=== PATIENT | female | born 1985 | race Caucasian/White ===

== ENCOUNTER 2018-10-24 08:13 | Emergency (ER) | payer BC ==
[2018-10-24 08:34] VITALS: BP 122/82
[2018-10-24 08:53] LABS: Influenza A Molecular NEGATIVE (Negative); Influenza B Molecular NEGATIVE (Negative)
--- NOTE | 2018-10-24 09:45 | UC ---
Respiratory Complaint HPI - HPI Summary HPI Summary: 33-year-old woman comes in with a chief complaint of upper respiratory tract infection symptoms and chest congestion. Symptoms started about a week ago with upper respiratory tract infection symptoms with a runny nose cough. Yesterday she felt a lot worse with fevers body aches and chest congestion. She took [id number] medicines which did help the symptoms. Now she is feeling chest congestion but no more bodyaches. A relative of hers has influenza and therefore her primary care doctor started her on Tamiflu yesterday but she had no influenza testing at that time. Patient's most concerned about the chest congestion. No shortness of breath he does not have a history of asthma she is not a smoker. Patient also reports a 4 day history of right lower quadrant abdominal pain. Is worse with stretching. She has been able to eat and drink normal urination normal bowels. She took a home test couple of weeks ago and that was negative. She is on a control pill but she did stop taking it briefly and then started again. No complaint of any abnormal vaginal discharge. No prior abdominal surgeries. The pain is mild. - History of Current Complaint Chief Complaint: UCRespiratory Stated Complaint: FEVER,NAUSEA,GRAFF,CHEST CONGESTION Time Seen by Provider: 10/24/18 09:24 Hx Last Menstrual Period: Irregular with Control; "maybe September" Pain Intensity: 0 - Allergies/Home Medications Allergies/Adverse Reactions: Allergies Allergy/AdvReac Type Severity Reaction Status Date / Time Penicillins Allergy Rash Verified 10/24/18 08:35 Home Medications: Home Medications Norethindrone [Norlyda] 0.35 mg PO DAILY 10/24/18 [History Confirmed 10/24/18] Oseltamivir CAP* [Tamiflu CAP*] 75 mg PO DAILY 10/24/18 [History Confirmed 10/24] PMH/Surg Hx/FS Hx/Imm Hx Previously Healthy: Yes - Surgical History Surgical History: Yes Surgery Procedure, Year, and Place: , 2016, [place]; T&A. Leap procedure 2003 - Family History Known Family History: Positive: Hypertension - Social History Alcohol Use: Occasionally Substance Use Type: None Smoking Status (MU): Never Smoked Tobacco Review of Systems All Other Systems Reviewed And Are Negative: Yes Constitutional: Positive: Fever, Chills Skin: Positive: Negative Eyes: Positive: Negative ENT: Positive: Sore Throat, Nasal Discharge, Sinus Congestion Respiratory: Positive: Cough Cardiovascular: Positive: Negative Gastrointestinal: Positive: Abdominal Pain Genitourinary: Positive: Negative. Negative: Dysuria, Vaginal/Penile Discharge Motor: Positive: Negative Neurovascular: Positive: Negative Musculoskeletal: Positive: Myalgia Neurological: Positive: Negative Psychological: Positive: Negative Is Patient Immunocompromised?: No Physical Exam Triage Information Reviewed: Yes Appearance: No Pain Distress, Well-Nourished, Ill-Appearing - MILD Vital Signs: Initial Vital Signs Temp 98.5 F 10/24/18 08:30 Pulse 78 10/24/18 08:30 Resp 16 10/24/18 08:30 BP 122/82 10/24/18 08:30 Pulse Ox 100 10/24/18 08:30 Vital Signs Reviewed: Yes Eye Exam: Normal Eyes: Positive: Conjunctiva Clear ENT: Positive: Pharyngeal erythema, Nasal congestion, Nasal drainage, TMs normal Neck exam: Normal Neck: Positive: Supple, Nontender Respiratory: Positive: Lungs clear, Normal breath sounds, No respiratory distress Cardiovascular: Positive: RRR Abdomen Description: Positive: Soft, Other: - Patient is mildly tender to palpation in the right lower quadrant primarily in the proximal inguinal area. No rebound. Negative heel strike negative obturator sign. No masses palpated. Bowel Sounds: Positive: Present Musculoskeletal Exam: Normal Musculoskeletal: Positive: Strength Intact, ROM Intact Neurological Exam: Normal Neurological: Positive: Alert, Muscle Tone Normal Psychological Exam: Normal Psychological: Positive: Age Appropriate Behavior Skin Exam: Normal UC Diagnostic Evaluation - Laboratory O2 Sat by Pulse Oximetry: 100 Respiratory Course/Dx - Course Course Of Treatment: We discussed her symptoms. Today the patient does not have any body aches and her influenza was negative therefore the chance that the overall infection is influenza is very small. Therefore she will stop taking the Tamiflu. We discussed viral versus bacterial infections and the role of antibiotics. Patient prefers to be on antibiotics now for the chest congestion. On evaluation of her abdominal pain the pain primarily is in the proximal inguinal area. We discussed the potential diagnosis of appendicitis inguinal hernia ectopic or ovarian cause of the pain. We discussed getting a urine test which the patient declined at this time. Over the overall the plan with her abdominal pain is if she gets any worse she'll go to the emergency department for further evaluation. - Differential Dx/Diagnosis Provider Diagnosis: Bronchitis, Right lower quadrant abdominal pain Discharge - Sign-Out/Discharge Documenting (check all that apply): Patient Departure All imaging exams completed and their final reports reviewed: No Studies - Discharge Plan Condition: Stable Disposition: HOME Prescriptions: Azithromyxin PINA (NF) [Z-Pina (Zithromax) 250 mg tabs #6] 2 tab PO .TODAY, THEN 1 DAILY #6 tab Patient Education Materials: Acute Bronchitis (ED), Acute Abdominal Pain (ED) Referrals: Nam Jean Baptiste DO [Primary Care Provider] - Additional Instructions: FOLLOW UP WITH YOUR DOCTOR IF NOT COMPLETELY IMPROVED. GO TO THE EMERGENCY DEPARTMENT FOR ANY WORSENING OF YOUR CONDITION; ABDOMINAL PAIN, FEVER, YOU FEEL ILL OR QUESTIONS OR CONCERNS. - Billing Disposition and Condition Condition: STABLE Disposition: Home
== END 2018-10-24 09:49 | disposition home or self-care (01) ==
LOC: UCCORT 08:13
DX: J40 Bronchitis, not specified as acute or chronic (principal); R10.31 Right lower quadrant pain; M79.10 Myalgia, unspecified site; R09.89 Other specified symptoms and signs involving the circulatory and respiratory systems; Z88.0 Allergy status to penicillin
CPT/HCPCS: 99212; G0463

== ENCOUNTER 2019-03-13 19:31 | Emergency (ER) | payer BC ==
[2019-03-13 19:48] VITALS: BP 106/69
--- NOTE | 2019-03-13 20:08 | UC ---
UC General HPI - HPI Summary HPI Summary: PT IS C/O WORSENING SINUS PAIN, PRESSURE AND CONGESTION FOR OVER A WEEK. SHE HAS HAD PURULENT DRAINAGE FROM THE L NOSTRIL. NO FEVER. HX SINUSITIS AND THIS FEELS THE SAME. SHE TRIED TO TX WITH ALLERGY MEDIATION WITH NO RELIEF. THE PAIN GOES INTO HER TEETH. - History of Current Complaint Chief Complaint: UCGeneralIllness Stated Complaint: SINUS Time Seen by Provider: 03/13/19 19:58 Hx Obtained From: Patient Hx Last Menstrual Period: 03/08/19 Onset/Duration: Gradual Onset Timing: Constant Pain Intensity: 5 - Allergy/Home Medications Allergies/Adverse Reactions: Allergies Allergy/AdvReac Type Severity Reaction Status Date / Time Penicillins Allergy Rash Verified 03/13/19 19:43 Home Medications: Home Medications Pnv No.95/Ferrous Fum/Folic AC [ Caplet] 1 each PO DAILY 03/13/19 [ History Confirmed 03/13/19] Pseudoephedrine TAB* [Sudafed TAB*] 30 mg PO Q6H PRN 03/13/19 [History Confirmed 03/13/19] PMH/Surg Hx/FS Hx/Imm Hx - Additional Past Medical History Additional PMH: SINUSITIS - Surgical History Surgical History: Yes Surgery Procedure, Year, and Place: , 2017, [place]; T&A. Leap procedure 2003 - Family History Known Family History: Positive: Hypertension - Social History Lives: With Family Alcohol Use: Occasionally Substance Use Type: None Smoking Status (MU): Never Smoked Tobacco Review of Systems All Other Systems Reviewed And Are Negative: Yes Constitutional: Negative: Fever ENT: Positive: Nasal Discharge, Sinus Congestion, Sinus Pain/Tenderness Physical Exam Triage Information Reviewed: Yes Appearance: Well-Appearing Vital Signs: Initial Vital Signs Temp 98.7 F 03/13/19 19:44 Pulse 62 03/13/19 19:44 Resp 14 03/13/19 19:44 BP 106/69 03/13/19 19:44 Pulse Ox 99 03/13/19 19:44 Vital Signs Reviewed: Yes Eyes: Positive: Conjunctiva Clear ENT: Positive: Pharynx normal, Nasal congestion, TMs normal, Sinus tenderness - FRONTAL AND MAXILLA. Negative: Nasal drainage Neck: Positive: Supple, Nontender, No Lymphadenopathy Respiratory: Positive: Lungs clear Cardiovascular: Positive: RRR Musculoskeletal: Positive: ROM Intact Neurological: Positive: Alert Psychological: Positive: Age Appropriate Behavior Skin Exam: Normal Course/Dx - Course Course Of Treatment: PCN ALLERGY IS HIVES. SHE HAS TAKEN KEFLEX THUS WILL TX WITH CEFDINIR FOR SINUSITIS. I WANT TO AVOID DOXYCYCLINE DUE TO PHOTOSENSITIVITY. - Diagnoses Provider Diagnosis: Sinusitis Discharge - Sign-Out/Discharge Documenting (check all that apply): Patient Departure All imaging exams completed and their final reports reviewed: No Studies - Discharge Plan Condition: Stable Disposition: HOME Prescriptions: Cefdinir [Cefdinir 300 MG CAP] 300 mg PO BID 10 Days #20 capsule Patient Education Materials: Sinusitis (ED) Referrals: Nam Jean Baptiste DO [Primary Care Provider] - Additional Instructions: FOLLOW UP IF NOT BETTER IN 7 DAYS OR SOONER IF WORSE. - Billing Disposition and Condition Condition: STABLE Disposition: Home
== END 2019-03-13 20:13 | disposition home or self-care (01) ==
LOC: UCCORT 19:31
DX: J32.9 Chronic sinusitis, unspecified (principal)
CPT/HCPCS: 99212; G0463

== ENCOUNTER 2019-09-16 15:18 | Emergency (ER) | payer BC ==
[2019-09-16 16:10] VITALS: BP 130/86
--- NOTE | 2019-09-16 16:30 | UC ---
Throat Pain/Nasal Gopal HPI - HPI Summary HPI Summary: 34-year-old female who is 19 weeks presents with complaints of headache for the past 9 days. States she contacted her LEARNING SUPPORT ASSISTANT who suggested that she come to urgent care for evaluation of a possible sinus infection. Describes headache as an intermittent pressure and ache located behind her eyes. Has taken acetaminophen with some relief in the symptoms. Patient notes moderate nasal congestion. Denies fever, chills, ear pain, sore throat, cough, visual disturbances, dizziness, chest pain, shortness of breath, nausea, or vomiting. - History of Current Complaint Chief Complaint: UCRespiratory Stated Complaint: SINUSES Time Seen by Provider: 09/16/19 16:24 Hx Obtained From: Patient Hx Last Menstrual Period: 03/08/19 ?: Yes Pain Intensity: 0 - Allergies/Home Medications Allergies/Adverse Reactions: Allergies Allergy/AdvReac Type Severity Reaction Status Date / Time Penicillins Allergy Rash Verified 09/16/19 16:10 Home Medications: Home Medications Acetaminophen [Acetaminophen Extra Strength] 500 mg PO ONCE PRN 09/16/19 [ History Confirmed 09/16/19] PMH/Surg Hx/FS Hx/Imm Hx Previously Healthy: Yes - Denies significant PMH - Surgical History Surgical History: Yes Surgery Procedure, Year, and Place: , 2016, [place]; T&A. Leap procedure 2003 - Family History Known Family History: Positive: Hypertension - Social History Occupation: Employed Full-time Lives: With Family Alcohol Use: Occasionally Substance Use Type: None Smoking Status (MU): Never Smoked Tobacco Review of Systems All Other Systems Reviewed And Are Negative: Yes Constitutional: Negative: Fever, Chills Skin: Negative: Rash Eyes: Negative: Blurred Vision, Diplopia, Drainage, Eye Redness, Photophobia ENT: Positive: Nasal Discharge, Sinus Congestion. Negative: Sore Throat, Ear Ache Respiratory: Negative: Shortness Of Breath, Cough Cardiovascular: Negative: Palpitations, Chest Pain Gastrointestinal: Negative: Abdominal Pain, Vomiting, Nausea Genitourinary: Positive: Negative Musculoskeletal: Positive: Negative Neurological: Positive: Headache. Negative: Weakness, Paresthesia, Numbness Physical Exam - Summary Physical Exam Summary: GENERAL APPEARANCE: Well developed, well nourished, alert and cooperative, and appears to be in no acute distress. EYES: Conjunctiva clear. No drainage. PERRL, EOM intact. Vision is grossly intact. EARS: External auditory canals and tympanic membranes clear, hearing grossly intact. NOSE: Moderate nasal congestion. No nasal discharge. THROAT: Pharynx normal. No tonsilar inflammation, swelling, exudate, or lesions. Uvula midline. NECK: Neck supple, non-tender without lymphadenopathy. CARDIAC: Normal S1 and S2. No S3, S4 or murmurs. Rhythm is regular. There is no peripheral edema, cyanosis or pallor. Extremities are warm and well perfused. Capillary refill is less than 2 seconds. Peripheral pulses intact. LUNGS: Clear to auscultation without rales, rhonchi, wheezing or diminished breath sounds. ABDOMEN: Positive bowel sounds. Soft, nondistended, nontender. No guarding or rebound. No masses or hepatosplenomegally. Fundus consistent with gestational age. MUSKULOSKELETAL: ROM intact to all extremities. No joint erythema or tenderness. Normal muscular development. Normal gait. NEUROLOGICAL: CN II-XII intact. Strength and sensation symmetric and intact throughout. Cerebellar testing normal. SKIN: Skin normal color, texture and turgor with no lesions or eruptions. Triage Information Reviewed: Yes Vital Signs: Initial Vital Signs Temp 99.9 F 09/16/19 16:05 Pulse 87 09/16/19 16:05 Resp 18 09/16/19 16:05 BP 130/86 09/16/19 16:05 Pulse Ox 99 09/16/19 16:05 Vital Signs Reviewed: Yes Throat Pain/Nasal Course/Dx - Course Course Of Treatment: 34-year-old female who is 19 weeks presents with complaints of headache for the past 9 days. States she contacted her LEARNING SUPPORT ASSISTANT who suggested that she come to urgent care for evaluation of a possible sinus infection. Describes headache as an intermittent pressure and ache located behind her eyes. Has taken acetaminophen with some relief in the symptoms. Patient notes moderate nasal congestion. Denies fever, chills, ear pain, sore throat, cough, visual disturbances, dizziness, chest pain, shortness of breath, nausea, or vomiting. Afebrile. Mildly hypertensive at 130/86 otherwise vital signs stable. Patient was neurologically intact with moderate nasal congestion, normal TMs, normal pharynx, clear bilateral breath sounds, and otherwise unremarkable exam. [id number] urinalysis showed some trace leukocyte esterase but no protein. A urine culture is pending. Repeat blood pressure had normalized. I discussed with the patient that with the normal blood pressure and absence of protein in the urine that I had a very low suspicion for preeclampsia however could not fully rule this out. We will plan to treat her for an acute sinus infection with a course of azithromycin as well as symptomatic treatment. She is to follow-up with her primary care or LEARNING SUPPORT ASSISTANT in 3 -5 days if symptoms are not improving. Anticipatory guidance and warning symptoms requiring immediate evaluation in the emergency room were reviewed with the patient. Verbalizes understanding and agrees with plan of care. - Differential Dx/Diagnosis Differential Diagnosis/HQI/PQRI: Sinusitis, URI, Other - Preeclampsia Provider Diagnosis: Sinusitis Discharge ED - Sign-Out/Discharge Documenting (check all that apply): Patient Departure All imaging exams completed and their final reports reviewed: No Studies - Discharge Plan Condition: Stable Disposition: HOME Prescriptions: Azithromyxin PINA (NF) [Z-Pina (Zithromax) 250 mg tabs #6] 2 tab PO .TODAY, THEN 1 DAILY #6 tab Fluticasone NASAL SPRAY 50MCG* [Flonase NASAL SPRAY 50MCG*] 2 spray BOTH NARES DAILY #1 btl Patient Education Materials: Sinusitis (ED) Referrals: Nam Jean Baptiste DO [Primary Care Provider] - Additional Instructions: The urine test performed in the clinic today showed some trace white blood cells but was otherwise normal. We will be sending the urine for culture and will contact you if there is any indication of an infection that will need to be treated. Your history and exam seem most consistent with a sinus infection. Considering the duration of your symptoms we will start you on an antibiotic. Take azithromycin 2 tabs today then 1 tab a for the next 4 days. Drink plenty of fluids to avoid dehydration especially if you are running any fever. Use a saline rinse kit such as Neti Pot or NeilMed at least twice a day to help thin secretions and promote drainage of the sinuses. Use fluticasone (Flonase) nasal spray 2 sprays each nostril once daily. Take over the counter acetaminophen (Tylenol) according to directions as needed for pain or fever. Follow up with your primary care provider or LEARNING SUPPORT ASSISTANT in 5-7 days if symptoms persist. Seek immediate medical attention in the emergency room if you have fever greater than 100.5 F despite taking acetaminophen or ibuprofen, have a severe headache that is not relieved by pain medication, you have any visual disturbances, dizziness, chest pain, difficulty breathing, or any worsening of symptoms. - Billing Disposition and Condition Condition: STABLE Disposition: Home
--- NOTE | 2019-09-19 07:02 | UC ---
- Progress Note Progress Note: urine no growth, no change christiano Course/Dx - Diagnoses Provider Diagnoses: Sinusitis Discharge ED - Sign-Out/Discharge Documenting (check all that apply): Post-Discharge Follow Up All imaging exams completed and their final reports reviewed: No Studies - Discharge Plan Condition: Stable Disposition: HOME Prescriptions: Azithromyxin PINA (NF) [Z-Pina (Zithromax) 250 mg tabs #6] 2 tab PO .TODAY, THEN 1 DAILY #6 tab Fluticasone NASAL SPRAY 50MCG* [Flonase NASAL SPRAY 50MCG*] 2 spray BOTH NARES DAILY #1 btl Patient Education Materials: Sinusitis (ED) Referrals: Nam Jean Baptiste DO [Primary Care Provider] - Additional Instructions: The urine test performed in the clinic today showed some trace white blood cells but was otherwise normal. We will be sending the urine for culture and will contact you if there is any indication of an infection that will need to be treated. Your history and exam seem most consistent with a sinus infection. Considering the duration of your symptoms we will start you on an antibiotic. Take azithromycin 2 tabs today then 1 tab a for the next 4 days. Drink plenty of fluids to avoid dehydration especially if you are running any fever. Use a saline rinse kit such as Neti Pot or NeilMed at least twice a day to help thin secretions and promote drainage of the sinuses. Use fluticasone (Flonase) nasal spray 2 sprays each nostril once daily. Take over the counter acetaminophen (Tylenol) according to directions as needed for pain or fever. Follow up with your primary care provider or CAPACITY MANAGEMENT SPECIALIST in 5-7 days if symptoms persist. Seek immediate medical attention in the emergency room if you have fever greater than 100.5 F despite taking acetaminophen or ibuprofen, have a severe headache that is not relieved by pain medication, you have any visual disturbances, dizziness, chest pain, difficulty breathing, or any worsening of symptoms. - Billing Disposition and Condition Condition: STABLE Disposition: Home
== END 2019-09-16 17:10 | disposition home or self-care (01) ==
LOC: UCCORT 15:18
DX: J32.9 Chronic sinusitis, unspecified (principal); Z88.0 Allergy status to penicillin
CPT/HCPCS: 81003; 87086; 99212; G0463